=== PATIENT | female | born 1965 | race African-American/Black ===

== ENCOUNTER → 2016-12-04 | Outpatient (CLI) | payer OTHER ==
[~2016-12-04] VITALS: Ht 160 cm; Wt 74.9 kg
[~2016-12-04] MED LIST: AZIT500T2 PO; CENTTAB PO; CHLORHEXIDINE GLUCONATE 2 % 1 PACK (2 CLOTHS) TOPICAL PRN; INSULIN HUMAN REGULAR 1,000 UNITS/10 ML VIAL SQ PRN; LACTATED RINGER'S 1000 ML IV PRN; METOPROLOL TARTRATE 25 MG TAB PO PRN; PANT20TA2 PO; POVIDONE IODINE 5% (ANTISEPSIS KIT) 4 APPLICATIONS EACH NARE PRN; PROPOFOL 200 MG/20 ML AMP IV ONE; SODIUM CHLOR 0.9% 1000 ML INJ 1,000 ML IV SCH; SODIUM CHLORID 0.9% 500 ML IV PRN
[2016-12-04 10:00] VITALS: BP 135/91; PULSE 70; RESP 16; TEMP 98.8; O2SAT 98
--- NOTE | 2016-12-04 11:22 | EKG ---
Date Performed: 12/04/2016 Time Performed: 10:03:25 PTAGE: 51 years EKG: Sinus rhythm NONSPECIFIC T-WAVE ABNORMALITY BORDERLINE ECG NO PREVIOUS TRACING DOCTOR: Jesus Pritchard Interpretating Date/Time 12/04/2016 11:19:36
[2016-12-04 12:39] VITALS: TEMP 97.8
[2016-12-04 12:55] VITALS: BP 124/83; PULSE 69; RESP 18; O2SAT 99
--- NOTE | 2016-12-04 13:50 | MR ---
cc: GEOVANNI DEAL M.D. DATE 12/04/2016 DATE OF 1965 PROCEDURE Colonoscopy INDICATION FOR THE PROCEDURE Evaluation of constipation, family history of colon cancer. Increased risk screening. Photographs and biopsies were taken. PREMEDICATION Administered by anesthesiology. MONITORING Accomplished with pulse oximeter, EKG, and blood pressure monitor. PROCEDURE NOTE After informed consent was obtained and the procedure, risks and benefits were explained including the risks of bleeding, sepsis, perforation, and risks of anesthesia, the patient was placed in the left lateral position. The video colonoscope was inserted into the rectum and passed to the cecum in the usual fashion. Preparation was very good. Colon extraction time was greater than eight minutes. The scope was then gradually withdrawn. In the ascending colon, one diminutive polyp was biopsied off and removed. The scope was gradually withdrawn once again and occasional diverticulosis was noted in the left colon. In the rectum, the scope was retroflexed. Grade one internal hemorrhoids were noted. In the retroflex view, there was a small 4 mm either old scar or previous old fistulous tract noted. This was left intact. Overall significance is not known at this time. The scope was removed. The patient tolerated the procedure well. IMPRESSION This examination revealed one diminutive polyp that was biopsied off and removed. In the rectum, there was question of a small scar versus old fistulous region not active at this time. We will proceed conservatively regarding that issue. She had grade one hemorrhoids as well. PLAN Follow the pathology. Recommend repeat colonoscopy in five years for a family history of colorectal cancer. MD DENISE Edwards/BRONWYN /12:58 PM /1:41 PM
== END ==
LOC: HEND 09:07
PROVIDERS: ATTEND Internal Medicine Gastroenterology
DX: K59.00 Constipation, unspecified (principal); Z80.0 Family history of malignant neoplasm of digestive organs; D12.2 Benign neoplasm of ascending colon; K57.30 Diverticulosis of large intestine without perforation or abscess without bleeding; K64.0 First degree hemorrhoids; R94.31 Abnormal electrocardiogram [ECG] [EKG]
CPT/HCPCS: 88305; 93005

== ENCOUNTER 2017-03-07 16:41 | Emergency (ER) | payer SELFPAY ==
[~2017-03-07] VITALS: Ht 160 cm; Wt 77.0 kg
[~2017-03-07 16:41] MED LIST changes: -AZIT500T2 PO; +BUTA1CAP PO; -CHLORHEXIDINE GLUCONATE 2 % 1 PACK (2 CLOTHS) TOPICAL PRN; -INSULIN HUMAN REGULAR 1,000 UNITS/10 ML VIAL SQ PRN; -LACTATED RINGER'S 1000 ML IV PRN; -METOPROLOL TARTRATE 25 MG TAB PO PRN; +MICA40TA PO; -POVIDONE IODINE 5% (ANTISEPSIS KIT) 4 APPLICATIONS EACH NARE PRN; -PROPOFOL 200 MG/20 ML AMP IV ONE; -SODIUM CHLOR 0.9% 1000 ML INJ 1,000 ML IV SCH; -SODIUM CHLORID 0.9% 500 ML IV PRN
[2017-03-07 18:06] VITALS: BP 136/92; PULSE 82; RESP 16; TEMP 98.6; O2SAT 100
[2017-03-07] MEDS ORDERED: SODIUM CHLOR 0.9% 1000 ML INJ 1,000 ML IV SCH (18:14)
[2017-03-07] MEDS ORDERED: SODIUM CHLORIDE 0.9% FLUSH 10 ML FLUSH IV FLUSH PRN (18:15)
[2017-03-07] MEDS ORDERED: ONDANSETRON HCL 4 MG/2 ML VIAL IVP ONE (18:15)
--- NOTE | 2017-03-07 18:21 | PD ---
HPI Chief Complaint: GI Complaint Time Seen by Provider: 18:17 Travel History International Travel<30 days: No Contact w/Intl Traveler<30days: No Traveled to known affect area: No History of Present Illness HPI 2-year-old female presents to the emergency department for evaluation of nausea , vomiting, abdominal pain that started approximately 3 hours ago while working. He plans. She states she was working with capsaicin. She states that she was in full PPE, but is unsure if this is due to her symptoms. She states she has vomited several times, undigested food. She denies any diarrhea or constipation. No blood in her stool or vomit. Patient denies any previous abdominal surgeries. She denies any chance of reporting that she is in menopause. Patient states she has epigastric, periumbilical abdominal pain. Patient denies any fevers or chills. No chest pain or abdominal pain. She reports history of hypertension, headaches. PFSH Past Medical History Cancer: No Cardiovascular Problems: No Diabetes: No Endocrine: No Genitourinary: No Hepatitis: No Hiatal Hernia: No Immune Disorder: No Musculoskeletal: No Neurologic: No Psychiatric: Yes (ANXIETY) Reproductive: No Respiratory: No Thyroid Disease: No ?: Unknown Past Surgical History Abdominal Surgery: Yes (HEMMORHOIDECTOMY) AICD: No Ear Surgery: No Endocrine Surgery: No Genitourinary Surgery: No Gynecologic Surgery: No Joint Replacement: No Oral Surgery: No Pacemaker: No Thoracic Surgery: No Social History Alcohol Use: No Tobacco Use: No Substance Use: No Allergies-Medications (Allergen,Severity, Reaction): Coded Allergies: No Known Allergies (Unverified , 03/07/17) Reported Meds & Prescriptions Reported Meds & Active Scripts Active Fioricet (Onynsgpzsi-Fawqrjqiagvtr-Nxvldqaf) 50-300-40 Mg Cap 1-2 Cap PO Q6H PRN . Micardis Hct (Telmisartan-Hydrochlorothiazide) 40-12.5 Mg Tab 1 Tab PO DAILY Pantoprazole (Pantoprazole Sodium) 20 Mg Tab 20 Mg PO DAILY Review of Systems Except as stated in HPI: all other systems reviewed are Neg Physical Exam Narrative GENERAL: Well-nourished, well-developed female patient, afebrile. SKIN: Focused skin assessment warm/dry. HEAD: Normocephalic. Atraumatic. EYES: No scleral icterus. No injection or drainage. NECK: Supple, trachea midline. No JVD or lymphadenopathy. CARDIOVASCULAR: Regular rate and rhythm without murmurs, gallops, or rubs. RESPIRATORY: Breath sounds equal bilaterally. No accessory muscle use. Lungs sounds are clear to auscultation. GASTROINTESTINAL: Abdomen soft and nondistended. She has tenderness over the periumbilical, epigastric region to palpation. MUSCULOSKELETAL: No cyanosis, or edema. BACK: Nontender without obvious deformity. No CVA tenderness. Data Data Last Documented VS Vital Signs Date Time Temp Pulse Resp B/P Pulse Ox O2 Delivery O2 Flow Rate FiO2 03/07/17 18:36 16 03/07/17 18:34 95 Room Air 03/07/17 18:34 87 149/85 03/07/17 18:06 98.6 Orders Complete Blood Count With Diff (03/07/17 18:14) Comprehensive Metabolic Panel (03/07/17 18:14) Lipase (03/07/17 18:14) Urinalysis - C+S If Indicated (03/07/17 18:14) Ct Abd/Pel W Iv Contrast(Rout) (03/07/17 18:14) Iv Access Insert/Monitor (03/07/17 18:14) Ecg Monitoring (03/07/17 18:14) Oximetry (03/07/17 18:14) Ondansetron Inj (Zofran Inj) (03/07/17 18:15) Sodium Chlor 0.9% 1000 Ml Inj (Ns 1000 M (03/07/17 18:14) Sodium Chloride 0.9% Flush (Ns Flush) (03/07/17 18:15) Call Poison Control (03/07/17 18:14) Morphine Inj (Morphine Inj) (03/07/17 18:45) Iohexol 350 Inj (Omnipaque 350 Inj) (03/07/17 19:38) Labs Laboratory Tests Test 03/07/17 03/07/17 18:40 19:16 White Blood Count 10.6 TH/MM3 Red Blood Count 4.42 MIL/MM3 Hemoglobin 13.8 GM/DL Hematocrit 39.7 % Mean Corpuscular Volume 89.8 FL Mean Corpuscular Hemoglobin 31.2 PG Mean Corpuscular Hemoglobin 34.8 % Concent Red Cell Distribution Width 15.2 % Platelet Count 154 TH/MM3 Mean Platelet Volume 10.1 FL Neutrophils (%) (Auto) 80.6 % Lymphocytes (%) (Auto) 9.7 % Monocytes (%) (Auto) 9.0 % Eosinophils (%) (Auto) 0.4 % Basophils (%) (Auto) 0.3 % Neutrophils # (Auto) 8.6 TH/MM3 Lymphocytes # (Auto) 1.0 TH/MM3 Monocytes # (Auto) 1.0 TH/MM3 Eosinophils # (Auto) 0.0 TH/MM3 Basophils # (Auto) 0.0 TH/MM3 CBC Comment DIFF FINAL Differential Comment Sodium Level 139 MEQ/L Potassium Level 3.8 MEQ/L Chloride Level 107 MEQ/L Carbon Dioxide Level 24.9 MEQ/L Anion Gap 7 MEQ/L Blood Urea Nitrogen 23 MG/DL Creatinine 1.01 MG/DL Estimat Glomerular Filtration 70 ML/MIN Rate Random Glucose 103 MG/DL Calcium Level 7.8 MG/DL Total Bilirubin 0.3 MG/DL Aspartate Amino Transf 39 U/L (AST/SGOT) Alanine Aminotransferase 49 U/L (ALT/SGPT) Alkaline Phosphatase 71 U/L Total Protein 7.2 GM/DL Albumin 3.4 GM/DL Lipase 249 U/L Urine Color YELLOW Urine Turbidity HAZY Urine pH 6.0 Urine Specific [place] 1.019 Urine Protein 30 mg/dL Urine Glucose (UA) NEG mg/dL Urine Ketones NEG mg/dL Urine Occult Blood TRACE Urine Nitrite NEG Urine Bilirubin NEG Urine Urobilinogen LESS THAN 2.0 MG/DL Urine Leukocyte Esterase SMALL Urine RBC 1 /hpf Urine WBC LESS THAN 1 /hpf Urine Squamous Epithelial 6 /hpf Cells Urine Hyaline Casts 10 /lpf Microscopic Urinalysis Comment CULT NOT INDICATED MDM Medical Decision Making Medical Screen Exam Complete: Yes Emergency Medical Condition: Yes Medical Record Reviewed: Yes Interpretation(s) Last Impressions Abdomen/Pelvis CT 03/07/171813 Signed Impressions: Service Date/Time: Tuesday, March 07, 2017 19:35 - CONCLUSION: 1. Patchy jejunal wall thickening suggesting a low-grade enteritis, nonspecific. No obstruction. No high-grade inflammatory changes are seen. 2. Enlarged heterogeneous uterus, most likely fibroids. Talon Manley MD Differential Diagnosis Gastroenteritis versus UTI versus pancreatitis versus cholecystitis versus reaction to capsaicin Narrative Course 52-year-old female presents to the emergency primary for evaporation nausea, vomiting, abdominal pain that started while working with capsaicin. She states she was wearing full PPE. Poison control will be contacted. CBC, CMP, lipase, UA, CT abdomen/pelvis with IV contrast are ordered and pending. Patient is given normal saline 1 L IV bolus, Zofran 4 mg IVP CBC shows no acute abnormality. CMP shows no acute abnormality. Lipase is 249. UA is negative for infection. Poison control recommended Zofran and fluids. CT abdomen/pelvis shows patchy jejunal wall thickening suggesting a low-grade enteritis, nonspecific. No obstruction. No high-grade inflammatory changes are seen; Enlarged heterogeneous uterus, most likely fibroids. Patient will be discharged with a prescription for Zofran for nausea. She is encouraged to follow-up with her primary care physician. She is to return here for any acute worsening of symptoms. Diagnosis Primary Impression: Gastroenteritis Referrals: Primary Care Physician call for appointment Patient Instructions: Gastroenteritis (ED), General Instructions Additional Instructions: Take Zofran as instructed as needed for nausea/vomiting. Follow-up with your primary care physician. Return to the emergency department for any acute worsening of symptoms. Med/Other Pt SpecificInfo: Prescription(s) given Scripts Ondansetron Odt 4 Mg Tab4 Mg SL Q6HR PRN (Nausea/Vomiting) #16 TAB Ref 0 Prov:Blanca Arriaga 03/07/17 Disposition: 01 DISCHARGE HOME Condition: Stable Blanca Arriaga Mar 07, 2017 18:21
[2017-03-07 18:34] VITALS: BP 149/85; PULSE 87; RESP 16; O2SAT 95; O2SAT 96
[2017-03-07] MEDS ORDERED: MORPHINE SULFATE 4 MG/ML INJ IV PUSH ONE (18:45)
[2017-03-07 19:11] LABS: ANION GAP 7 MEQ/L (5-15); AST (GOT) 39 U/L (15-37); BICARBONATE 24.9 MEQ/L (21.0-32.0); BLOOD UREA NITROGEN 23 MG/DL (7-18); CHLORIDE 107 MEQ/L (98-107); GLOMERULAR FILTRATION RATE 70 ML/MIN (>89); POTASSIUM 3.8 MEQ/L (3.5-5.1); SODIUM (NA) 139 MEQ/L (136-145)
[2017-03-07 19:14] LABS: ALKALINE PHOSPHATASE 71 U/L (45-117); ALT (GPT) 49 U/L (10-53); TOTAL BILIRUBIN ADULT 0.3 MG/DL (0.2-1.0)
[2017-03-07 19:17] LABS: AUTOMATED NEUTROPHIL # 8.6 TH/MM3 (1.8-7.7); BASOPHIL % 0.3 % (0.0-2.0); EOSINOPHIL % 0.4 % (0.0-4.0); HEMATOCRIT 39.7 % (35.0-46.0); HEMO FLAGS DIFF FINAL; LYMPH % 9.7 % (9.0-44.0); MEAN CELL VOLUME 89.8 FL (80.0-100.0); MEAN CORPUSCULAR HEMOGLOBIN 31.2 PG (27.0-34.0); MEAN CORPUSCULAR HGB CONC 34.8 % (32.0-36.0); NEUT % 80.6 % (16.0-70.0); PLATELET COUNT 154 TH/MM3 (150-450); RED BLOOD COUNT 4.42 MIL/MM3 (4.00-5.30); RED CELL DISTRIBUTION WIDTH 15.2 % (11.6-17.2); WHITE BLOOD COUNT 10.6 TH/MM3 (4.0-11.0)
[2017-03-07] MEDS ORDERED: IOHEXOL 350 MG/ML 10 ML VIAL (for RAD DIAG) IV ONE (19:38)
--- NOTE | 2017-03-07 20:03 | RADRPT ---
EXAM DATE/TIME: 03/07/2017 19:35 [facility] COMPARISON: No previous studies available for comparison. INDICATIONS : Mid abdominal pain x 2days. IV CONTRAST: 99 cc Omnipaque 350 (iohexol) IV ORAL CONTRAST: No oral contrast ingested. RADIATION DOSE: 10.11 CTDIvol (mGy) MEDICAL HISTORY : Hypertension. Gastroesophageal reflux disease. SURGICAL HISTORY : Hemorrhoidectomy. ENCOUNTER: Initial ACUITY: 2 days PAIN SCALE: 6/10 LOCATION: abdomen TECHNIQUE: Volumetric scanning of the abdomen and pelvis was performed. Using automated exposure control and ad justment of the mA and/or kV according to patient size, radiation dose was kept as low as reasonably achievable to obtain optimal diagnostic quality images. DICOM format image data is available electro nically for review and comparison. FINDINGS: LOWER LUNGS: The visualized lower lungs are clear. LIVER: Homogeneous density without lesion. There is no dilation of the biliary tree. No calcified gallston es. SPLEEN: Normal size without lesion. PANCREAS: Within normal limits. KIDNEYS: Normal in size and shape. There is no mass, stone or hydronephrosis. ADRENAL GLANDS: Within normal limits. VASCULAR: There is no aortic aneurysm. BOWEL/MESENTERY: There are loops of thick walled and narrowed jejunum noted in the left mid and lateral abdomen. Most of the segments involved are short. One segment, terminating at the level of the umbilicus, is a linda le longer, probably around 15 cm. Associated inflammatory changes seem minimal. The rest of the small bowel is upper limits of normal caliber and fluid-filled. The colon is within normal limits. No abno rmality seen in the stomach other than a small hiatal hernia. ABDOMINAL WALL: Within normal limits. RETROPERITONEUM: There is no lymphadenopathy. BLADDER: No wall thickening or mass. REPRODUCTIVE: Enlarged and heterogeneous uterus noted, most likely on the basis of fibroids. INGUINAL: There is no lymphadenopathy or hernia. MUSCULOSKELETAL: Within normal limits for patient age. CONCLUSION: 1. Patchy jejunal wall thickening suggesting a low-grade enteritis, nonspecific. No obstruction. No h igh-grade inflammatory changes are seen. 2. Enlarged heterogeneous uterus, most likely fibroids. Talon Manley MD on March 07, 2017 at 19:55 Board Certified Radiologist. This report was verified electronically.
[2017-03-07 20:05] LABS: BLOOD, URINE TRACE (NEG); COMMENT (UR) CULT NOT INDICATED; CULTURE IF INDICATED CULT NOT INDICATED; GLUCOSE,URINE NEG (NEG); HYALINE CAST, URINE 10 /lpf (RARE); KETONE, URINE NEG (NEG); NITRITE,URINE NEG (NEG); SQUAMOUS EPITHELIAL CELL URINE 6 /hpf (0-5); URINE COLOR YELLOW (YELLW/STRAW)
[2017-03-07] MEDS ORDERED: ONDA4TAB7 SL (20:25)
[2017-04-07] MEDS ORDERED: TERC.4%V VAGINAL (16:03)
[2017-04-07] MEDS ORDERED: ESTR42.5V VAGINAL (16:04)
[2017-04-08] MEDS ORDERED: DIFL150T PO (16:01)
[2017-04-08] MEDS ORDERED: METR-1 PO (16:01)
== END 2017-03-07 20:34 | disposition home or self-care (01) ==
LOC: NEPD 16:41
DX: K52.9 Noninfective gastroenteritis and colitis, unspecified (principal)
CPT/HCPCS: 74177; 80053; 81001; 83690; 85025; 96365; 96375; 99285; J2405; J7030; Q9967